=== PATIENT | male | born 1995 | race Caucasian/White ===

== ENCOUNTER 2019-05-17 13:10 | Emergency (ER) | payer OTHER ==
--- NOTE | 2019-05-17 13:17 | PDOC ---
Rapid Medical Evaluation Time Seen by Provider: 05/17/19 13:15 Medical Evaluation: Allergies Allergy/AdvReac Type Severity Reaction Status Date / Time No Known Allergies Allergy Verified 07/13/16 13:29 05/17/19 13:15 CC: sore throat and congestion PE: OP- cobblestoning. No tonsillar exudate or swelling noted. Lungs CTAB. Orders: nothing Patient will proceed to ED for continued evaluation. Discharge Disposition - Diagnosis URI (upper respiratory infection) - Referrals - Patient Instructions - Post Discharge Activity
[2019-05-17 13:28] VITALS: BP 125/62; PULSE 68; TEMP 98; BMI 27.1
--- NOTE | 2019-05-17 13:33 | PDOC ---
History of Present Illness - General Chief Complaint: Cold Symptoms Stated Complaint: SORE THROAT/ CONJESTED Time Seen by Provider: 05/17/19 13:15 - History of Present Illness Initial Comments: 05/17/19 13:33 CHIEF COMPLAINT: cold symptoms HISTORY OF PRESENT ILLNESS: 24 yo M with no PMH presents to fast track with sore throat, congestion, and cough x 1 week. Patient states reports chills and subjective fever, denies N/V/D. Patient reports cough as mildly productive with clear phlegm. No recent travel or sick contacts. PAST MEDICAL HISTORY: Denies past medical history FAMILY HISTORY: Denies SOCIAL HISTORY: Denies tobacco, alcohol, illicit drug use. SURGICAL HISTORY: Denies ALLERGIES: No known drug allergies REVIEW OF SYSTEMS General/Constitutional: Denies fever or chills. Denies weakness, weight change. HEENT: Sore throat. Denies change in vision. Denies ear pain or discharge. Cardiovascular: Denies chest pain or shortness of breath. Respiratory: Cough x 1 week. Denies wheezing, or hemoptysis. Gastrointestinal: Denies nausea, vomiting, diarrhea or constipation. Denies rectal bleeding. Genitourinary: Denies dysuria, frequency, or change in urination. Musculoskeletal: Denies joint or muscle swelling or pain. Denies neck or back pain. Skin and breasts: Denies rash or easy bruising. Neurologic: Denies headache, vertigo, loss of consciousness, or loss of sensation. Psychiatric: Denies depression or anxiety. PHYSICAL EXAM General Appearance: Well-appearing, appropriately dressed. No apparent distress. HEENT: Cobblestoning to posterior oropharynx, post nasal drip appreciated. EOMI , PERRLA, normal voice, TMs normal, pharynx normal. No conjunctival pallor. No photophobia, scleral icterus. Neck: Supple. Trachea midline. No tenderness, rigidity, carotid bruit, stridor , lymphadenopathy, or thyromegaly. Respiratory/Chest: Lungs CTAB. No shortness of breath, chest tenderness, respiratory distress, accessory muscle use. No crackles, rales, rhonchi, stridor , wheezing, dullness Cardiovascular: RRR. S1, S2. No JVD, murmur, bradycardia, tachycardia. Gastrointestinal/Abdominal: Normal bowel sounds. Abdomen soft, non-distended. No tenderness or rebound tenderness. No organomegaly, pulsatile mass, guarding , hernia, hepatomegaly, splenomegaly. Musculoskeletal/Extremities: Normal inspection. FROM of all extremities, normal capillary refill. Pelvis Stable. No CVA tenderness. No tenderness to extremities, pedal edema, swelling, erythema or deformity. Integumentary: Appropriate color, dry, warm. No cyanosis, erythema, jaundice or rash Neurologic: farm contractor II-XII intact. Fully oriented, alert. Appropriate mood/affect. Motor strength 5/5. No appreciable EOM palsy, facial droop or sensory deficit. Past History - Past Medical History Allergies/Adverse Reactions: Allergies Allergy/AdvReac Type Severity Reaction Status Date / Time No Known Allergies Allergy Verified 07/13/16 13:29 Home Medications: Ambulatory Orders Tobramycin 0.3% Ophth Soln [Tobrex Ophthalmic Solution -] 2 drop OS Q6HPO #1 drops 07/13/16 Benzonatate [Tessalon Pearls -] 100 mg PO TID #21 capsule 05/17/19 Pseudoephedrine HCl [Pseudoephedrine ER] 120 mg PO BID #20 tablet.er 05/17/19 COPD: No - Immunization History Immunization Up to Date: No - Psycho Social/Smoking Cessation Hx Smoking History: Never smoked Have you smoked in the past 12 months: No Information on smoking cessation initiated: No Hx Alcohol Use: No Drug/Substance Use Hx: No Substance Use Type: None *Physical Exam - Vital Signs Last Vital Signs Temp Pulse Resp BP Pulse Ox 98.0 F 68 18 125/62 100 05/17/19 13:22 05/17/19 13:22 05/17/19 13:22 05/17/19 13:22 05/17/19 13:22 Medical Decision Making - Medical Decision Making 05/17/19 13:44 24 yo M with no PMH presents to fast track with sore throat, congestion, and cough x 1 week. Clinical presentation consistent with viral URI. Will treat symptomatically. Advised patient to take medication as prescribed and follow up with PCP if symptoms persist past 1 week. Advised patient of signs and symptoms for return to ED. Patient verbalized understanding and agrees to plan. Discharge - Discharge Information Problems reviewed: Yes Clinical Impression/Diagnosis: URI (upper respiratory infection) Qualifiers: URI type: unspecified viral URI Qualified Code(s): J06.9 - Acute upper respiratory infection, unspecified Condition: Stable Disposition: HOME - Admission No - Additional Discharge Information Prescriptions: Benzonatate [Tessalon Pearls -] 100 mg PO TID #21 capsule Pseudoephedrine HCl [Pseudoephedrine ER] 120 mg PO BID #20 tablet.er - Follow up/Referral Referrals: Alexander Beaver MD [Staff Physician] - - Patient Discharge Instructions Patient Printed Discharge Instructions: DI for Viral Upper Respiratory Infection -- Adult Additional Instructions: Please take medications as prescribed. Follow up with your primary care doctor in 1 week if symptoms persist. If you develop any new or worsening symptoms, please return to the ER. - Post Discharge Activity
== END 2019-05-17 14:07 | disposition home or self-care (01) ==
LOC: JERFT 13:10
DX: J06.9 Acute upper respiratory infection, unspecified (principal); B97.89 Other viral agents as the cause of diseases classified elsewhere
CPT/HCPCS: 99281-25